=== PATIENT | female | born 1950 | race Caucasian/White ===

== ENCOUNTER 2017-10-26 13:57 | Emergency (ER) | payer BC, OTHER ==
--- NOTE | 2017-10-26 14:27 | PDOC ---
History of Present Illness - History of Present Illness Initial Comments: 10/26/17 14:52 Patient is a 66 F, with PMHx of HTN, HLD, chronic lower back pain bursitis, arthritis. , cyclic vomiting, raynaud's, who was sent [facility] after experiencing chest pain while being prepped for left cataract surgery. Patient states that her nurse noticed that she was clutching her chest and the patient told her that she has been having this pain intermittently over the past couple of days. She describes the pain as a muscle soreness/pulling sensation, worse with with movement (turning in particular) and with inspiration, pain varies from 1-10/10, nothing makes it better. She states that she took hydrocodone and morphine for the pain today. Currently, she states that her pain is a 1/10. She also reports increased shortness of breath. Denies recent cough and cold. Allergies: denies Social Hx: Quit smoking 6-7 years ago (1-2 packs/day) Surgical Hx: right lumpectomy s/p breast cancer ( 6 years ago) , appendectomy, tonsillectomy, lower back ( fusion, revision, laminectomy) right shoulder replacement (2017) denies cardiac history PCP: Dr. Pedro Briceño <Dominique Reyes - Last Filed: 10/26/17 17:21> <Taryn Azar - Last Filed: 10/27/17 15:20> - General Chief Complaint: Chest Pain Stated Complaint: CHEST PAIN Time Seen by Provider: 10/26/17 13:58 Past History <Dominique Reyes - Last Filed: 10/26/17 17:21> - Past Medical History Anemia: Yes Asthma: No Cancer: Yes (Right Breast-had chemo and radiation) Cardiac Disorders: No CVA: No COPD: No CHF: No Dementia: No Diabetes: No GI Disorders: Yes (hx of GERD and PUD) Disorders: Yes HTN: Yes Hypercholesterolemia: Yes Liver Disease: No Seizures: No Thyroid Disease: Yes - Surgical History Abdominal Surgery: Yes Appendectomy: Yes Cardiac Surgery: No Cholecystectomy: No Lung Surgery: No Neurologic Surgery: No Orthopedic Surgery: Yes (Lumbar Fusion,Microdiscectomy,Multiple BILLIE's) - Suicide/Smoking/Psychosocial Hx Smoking History: Former smoker Have you smoked in the past 12 months: No If you are a former smoker, when did you quit?: 2013 Hx Alcohol Use: No Drug/Substance Use Hx: No Substance Use Type: None Hx Substance Use Treatment: No <Taryn Azar S - Last Filed: 10/27/17 15:20> - Past Medical History Allergies/Adverse Reactions: Allergies Allergy/AdvReac Type Severity Reaction Status Date / Time No Known Allergies Allergy Verified 10/26/17 11:18 Home Medications: Ambulatory Orders Atorvastatin Ca [Lipitor] 20 mg PO HS 10/20/17 Ca/D3/Mag Ox/Zinc/Jewel Stringer/Arnulfo/Bor [Calcium 600+D3 Plus Caplet] 1 each PO DAILY Cyclobenzaprine HCl [Flexeril -] 10 mg PO TID PRN 10/20/17 Escitalopram Oxalate [Lexapro -] 10 mg PO DAILY 10/20/17 Esomeprazole Magnesium [Nexium 24Hr] 20 mg PO BID 10/20/17 Folic Acid 1 mg PO DAILY 10/20/17 Furosemide [Lasix -] 20 mg PO TID 10/20/17 Hydrocodone/Acetaminophen [Hydrocodon-Acetaminoph 7.5-325] 1 each PO QID Hyoscyamine Sulfate 0.125 mg PO BID 10/20/17 L.acidoph,Paracasei, B.lactis [Probiotic] 1 each PO BID 10/20/17 Levothyroxine [Synthroid -] 200 mcg PO DAILY 10/20/17 Lorazepam 0.5 mg PO BID 10/20/17 Metoprolol Tartrate [Lopressor -] 25 mg PO BID 10/20/17 Morphine Sulfate [Morphine Sulfate Cr] 60 mg PO BID 10/20/17 Multivitamin [One Daily] 1 each PO DAILY 10/20/17 Ondansetron [Ondansetron Odt] 8 mg PO QID 10/20/17 Potassium Chloride [Klor-Con 10] 10 meq PO DAILY 10/20/17 Quinapril HCl [Accupril] 20 mg PO DAILY 10/20/17 Ranitidine HCl [Zantac] 150 mg PO BID 10/20/17 Review of Systems - Review of Systems Comments:: 10/26/17 14:52 CONSTITUTIONAL: Absent: fever, no chills, no fatigue EYES: Absent: visual changes ENT: Absent: ear pain, no sore throat CARDIOVASCULAR: Presnt: chest pain Absent: no palpitations RESPIRATORY: Present: SOB Absent: cough GI: Present: mild abdominal pain (chronic) Absent: no nausea, no vomiting, no constipation, no diarrhea GENITOURINARY: Absent: dysuria, no frequency, no hematuria MUSCULOSKELETAL: Present: back pain (chronic) SKIN: Absent: rash <Dominique Reyes - Last Filed: 10/26/17 17:21> *Physical Exam - Physical Exam Comments: 10/26/17 14:54 GENERAL: Well-appearing, well-nourished. No apparent distress. HEENT: Normocephalic, atraumatic. PERRL, EOM intact. CARDIOVASCULAR: Normal S1, S2. Regular rate and rhythm. PULMONARY: Mild wheezing in right lower lobes ABDOMEN: Soft, obese, mild tenderness to palpation in epigastric and right upper quadrant. EXTREMITIES: Normal ROM in all four extremities. b/l lymphedema SKIN: Warm, dry. No rash NEUROLOGICAL: No focal neurological deficits. <Dominique Reyes - Last Filed: 10/26/17 17:21> Heart Score/ECG Review - ECG Intrepretation Comment:: 10/26/17 11:57:18 Normal sinus rhythm Normal EKG Vent rate 68 bpm <Dominique Reyes - Last Filed: 10/26/17 17:21> ED Treatment Course - RADIOLOGY Radiograph Interpretation: 10/26/17 15:38 Chest X-Ray: Impression: No acute cardiopulmonary disease is present. Reported by: August Beaver MD 10/26/17 1519 <Dominique Reyes - Last Filed: 10/26/17 17:21> Medical Decision Making - Critical Care Time Total Critical Care Time (minutes): 20 Critical Care Statement: Due to the risk of deterioration due tochest pain my attendance to this patient required critical care time of 20 minutes, including assessment/reassessment, documentation, ordering and interpreting ancillary studies, discussion with ED staff and consultants, patient and their family, and excludes time spent on separately billable procedures. - Medical Decision Making 10/26/17 17:24 I observed/reassessed this patient every hour on the hour. Currently patient is asymptomatic. <Dominique Reyes - Last Filed: 10/26/17 17:21> - Medical Decision Making Second set of Troponin and EKG 6 hours later were negative, patient pain free for the duration of being observed in the ED. Advised to follow up with coat finisher for reassesement and potentially for another stress test 10/27/17 15:17 <Taryn Azar - Last Filed: 10/27/17 15:20> *DC/Admit/Observation/Transfer - Attestations Scribe Attestion: 10/26/17 15:01 Documentation prepared by Dominique Reyes, acting as medical front desk coordinator for Taryn Azar MD. <Dominique Reyes - Last Filed: 10/26/17 17:21> - Discharge Dispostion Admit: No <Taryn Azar - Last Filed: 10/27/17 15:20> Diagnosis at time of Disposition: Chest pain Qualifiers: Chest pain type: intercostal pain Qualified Code(s): R07.82 - Intercostal pain - Discharge Dispostion Disposition: HOME Condition at time of disposition: Good - Patient Instructions Printed Discharge Instructions: DI for Atypical Chest Pain Additional Instructions: Follow up with your coat finisher
[2017-10-26 14:57] VITALS: TEMP 98.4; BMI 34.9
[2017-10-26 15:50] VITALS: BP 96/68; PULSE 76
--- NOTE | 2017-10-27 09:57 | EKG ---
Test Reason : Blood Pressure : / mmHG Vent. Rate : 069 BPM Atrial Rate : 069 BPM P-R Int : 164 ms QRS Dur : 090 ms QT Int : 422 ms P-R-T Axes : 047 092 067 degrees QTc Int : 452 ms NORMAL SINUS RHYTHM RIGHTWARD AXIS BORDERLINE ECG WHEN COMPARED WITH ECG OF 26-OCT-2017 11:57, NO SIGNIFICANT CHANGE WAS FOUND Confirmed by JASMIN PEDRAZA, KAYLI ([id number]) on 10/27/2017 9:57:34 AM Referred By: DR MADDOX Confirmed By:KAYLI CASTELLANOS MD
== END 2017-10-26 19:18 | disposition home or self-care (01) ==
LOC: FER 13:57
DX: R07.82 Intercostal pain (principal); Z85.3 Personal history of malignant neoplasm of breast; K21.9 Gastro-esophageal reflux disease without esophagitis; I10 Essential (primary) hypertension; E78.00 Pure hypercholesterolemia, unspecified; Z87.891 Personal history of nicotine dependence
CPT/HCPCS: 36415; 71045-TC-FY; 84484; 93005; 99283-25

== ENCOUNTER → 2017-10-26 | Day surgery (SDC) | payer BC, OTHER ==
[2017-10-20 12:51] VITALS: BMI 34.9
[~2017-10-26] MED LIST: CYCLOPENTOLATE HCL 1% OPHTH SOLN 2 ML BOTTLE OS SCH; GENTAMICIN SULFATE 0.3% OPHTHALMIC (EYE DROPS) 5ML BOTTLE OS SCH; KETOROLAC TROMETHAMINE 0.5% 5 ML BOTTLE OPTHALMIC OS SCH; PHENYLEPHRINE 2.5% OPHTH SOLN 15 ML BOTTLE OS SCH; TROPICAMIDE 1% OPHTH SOLN 15 ML BOTTLE OS SCH
[2017-10-26 11:35] VITALS: BP 125/91; PULSE 88; TEMP 98.2
--- NOTE | 2017-10-26 17:22 | EKG ---
Test Reason : Blood Pressure : / mmHG Vent. Rate : 068 BPM Atrial Rate : 068 BPM P-R Int : 164 ms QRS Dur : 090 ms QT Int : 420 ms P-R-T Axes : 064 086 061 degrees QTc Int : 446 ms NORMAL SINUS RHYTHM NORMAL ECG NO PREVIOUS ECGS AVAILABLE Confirmed by Collin Wyman ([id number]) on 10/26/2017 5:22:01 PM Referred By: Abilio Mayorga Confirmed By:Collin Wyman
== END | disposition short-term general hospital (02) ==
LOC: FASU 10:27
PROVIDERS: ATTEND Ophthalmology
PROC: 08RK3JZ Replacement of Left Lens with Synthetic Substitute, Percutaneous Approach (ICD-10-PCS; principal; 2017-10-26)
DX: H26.9 Unspecified cataract (principal); Z53.09 Procedure and treatment not carried out because of other contraindication; R07.9 Chest pain, unspecified
CPT/HCPCS: 36415; 84484; 93005